=== PATIENT | male | born 1960 | race Caucasian/White ===

== ENCOUNTER 2020-10-12 | Emergency (ER) | payer OTHER ==
[~2020-10-12] VITALS: Ht 185.4 cm; Wt 104.3 kg
[2020-10-12] MEDS ORDERED: TOPROL XL25 MG PO (00:20)
[2020-10-12 01:24] LABS: CALCIUM 8.4 mg/dL (8.5-10.1); CREATININE 0.9 mg/dL (0.6-1.3)
[2020-10-12 01:28] LABS: ALBUMIN 3.2 g/dL (3.4-5.0); TOTAL BILIRUBIN 0.4 mg/dL (<0.1-1.0); TOTAL PROTEIN 7.3 g/dL (6.4-8.2)
[2020-10-12 02:13] LABS: ABSOLUTE LYMPHOCYTES 0.8 thou/uL (0.8-5.3); ABSOLUTE MONOCYTES 0.6 thou/uL (0.0-1.2); ABSOLUTE NEUTROPHILS 4.7 thou/uL (1.6-8.1); BASOPHILS 0.3 %; EOSINOPHILS 0.2 %; HEMATOCRIT 39.7 % (42.0-52.0); HEMOGLOBIN 13.9 gm/dL (14.0-18.0); LYMPHOCYTES 13.3 %; MCH 29.3 pg (26.0-34.0); MCHC 34.9 g/dL (28.0-37.0); MCV 83.9 fL (80.0-100.0); MONOCYTES 10.3 %; MPV 7.1 fl. (7.2-11.1); NUCLEATED RBCS 0 /100WBC; PLATELET COUNT* 276 thou/uL (150-400); POLYS 75.9 %; RBC 4.73 mil/uL (4.50-6.00); RDW-CV 13.7 % (10.5-14.5); WBC 6.2 thou/uL (4.0-11.0)
[2020-10-12] MEDS ORDERED: TORADOL 10 MG T10 MG PO (02:36)
[2020-10-12] MEDS ORDERED: ZOFRAN ODT4 MG PO (02:36)
[2020-10-12] MEDS ORDERED: HYDROCODON-ACE1 EAC7 PO (02:36)
[2020-10-12] MEDS ORDERED: KLOR-CON 10 ER10 MEQ PO (02:36)
[2020-10-12 02:58] VITALS: BP 148/72
--- NOTE | 2020-10-12 12:20 | EKG ---
[place] [address] ELECTROCARDIOGRAM REPORT Name: JOSE BAXTER Room: [facility]#: [id number] Admission: 10/12/20 Attend Phys: Discharge: 10/12/20 Date of : 60 Date of Service: 10/12/20 0057 Report #: [id number] THIS REPORT FOR: //name// [facility] ED Test Date: 2020-10-12 Test Time: 00:57:17 Pat Name: JOSE BAXTER Department: Room: Gender: Disc Sander: : 1960 Requested By: Meme Miller Order Number: [id number] MD: Kervin Martino Measurements Intervals [place] Rate: 99 P: 40 CO: 157 QRS: -21 QRSD: 100 T: 24 QT: 353 QTc: 453 Interpretive Statements Sinus rhythm Inferior infarct, old Baseline wander in lead(s) V4 No previous ECG available for comparison Electronically Signed On 10-12-2020 12:20:18 CDT by Kervin Martino [email or web address] <ELECTRONICALLY SIGNED> By: Kervin Martino MD, [facility] 10/12/20 1220 0057 0057 Kervin Martino MD, [facility] /EPI
== END 2020-10-12 02:58 | disposition home or self-care (01) ==
LOC: M.ERS
PROVIDERS: Personal Emergency Response Attendant
DX: U07.1 COVID-19 (principal); G44.89 Other headache syndrome; R11.2 Nausea with vomiting, unspecified